=== PATIENT | female | born 1950 | race Caucasian/White ===

== ENCOUNTER 2017-01-03 12:37 | Outpatient (CLI) | payer MEDICARE, OTHER ==
[2014-05-25 16:31] VITALS: BP 114/71
--- NOTE | 2017-01-03 14:27 | Diagnostic Imaging Report ---
MIRTA ESCOBAR [facility] [address] [facility].[address] [address] Report Submission Date: Jan 03, 2017 1:24:00 PM CDT Patient Study Name: EVELIO MERCADO Date: Jan 03, 2017 12:51:35 PM CDT Modality Type: US Gender: F Description: DPLX SCN XTRCRAN ART CMP SHANTEL : 50 Institution: [facility] Physician: MIRTA SECOBAR Examination: Carotid artery ultrasound History: Retinal artery exclusion Comparison exams: None available Findings: Right carotid: Common carotid artery peak systolic velocity 97.6 cm/s; end diastolic velocity 31.5 cm/s. Internal carotid artery peak systolic velocity 72.2 cm/s; end diastolic velocity 27.1 cm/s. External carotid artery velocity to 84.7 cm/s. Vertebral artery velocity 43.6 cm/s Vertebral flow antegrade. Normal waveforms. Minimal internal carotid artery plaquing, not nonocclusive. Left carotid: Common carotid artery peak systolic velocity 90.4 cm/s; end diastolic velocity 31.1 cm/s. Internal carotid artery peak systolic velocity 71.2 cm/s; end diastolic velocity 28.5 cm/s. External carotid artery velocity to 74.7 cm/s. Vertebral artery velocity 37.0 cm/s Vertebral flow antegrade. Normal waveforms. No abnormal plaquing. Right ICA/CCA Ratio: 0.9 Left ICA/CCA Ratio 0.8 Impression: Carotids ratios not elevated. No restriction to hemodynamic flow. Minimal right internal carotid plaquing. Electronically signed on Jan 03, 2017 1:24:00 PM CDT by: Yusef JOHNSON
== END 2017-01-03 12:40 ==
LOC: RAD 12:37
PROVIDERS: ATTEND Family Medicine
DX: H34.231 Retinal artery branch occlusion, right eye (principal)
CPT/HCPCS: 93880

== ENCOUNTER 2017-02-07 12:40 | Outpatient (CLI) | payer MEDICARE, OTHER ==
[2014-05-25 16:31] VITALS: BP 114/71
== END 2017-02-07 12:42 ==
LOC: CARD 12:40
PROVIDERS: ATTEND Internal Medicine Cardiovascular Disease
DX: I74.10 Embolism and thrombosis of unspecified parts of aorta (principal)

== ENCOUNTER 2017-03-29 19:55 | Emergency (ER) | payer MEDICARE, OTHER ==
[2017-03-29] MEDS ORDERED: OXYMETAZOLINE HCL 0.05% NASAL SPRAY NS ONE (19:58)
[2017-03-29 20:24] LABS: BASOPHILS % 0.4 (0.0-1.5); EOSINOPHILS % 0.9 % (0.0-6.8); MEAN CORPUSCULAR HEMOGLOBIN 30.8 pg (28.0-34.0); MEAN CORPUSCULAR VOLUME 91.5 fl (80.0-100.0); MONOCYTES % 4.4 % (0.0-11.0); NEUTROPHILS # 3.3 # k/uL (1.4-7.7)
[2017-03-29] MEDS ORDERED: PHYTONADIONE 10 MG/1 ML ONE (20:40)
[2017-03-29] MEDS ORDERED: PHYTONADIONE 10 MG/1 ML SUBCUT ONE (20:42)
--- NOTE | 2017-03-29 20:46 | ED Physician Documentation ---
Epistaxis - HISTORIAN Historian: patient - HPI Stated Complaint: Nose bleed Chief Complaint: Nosebleed Onset: hours (2) Timing: still present Location: left Severity: mild Further Comments: yes (66 year old female patient presents with nose bleed from left nare. Patient reports bleeding for 2 hours. On coumadin for A Fib) - ROS MS/SKIN/LYMPH: excessive bruising (related to coumadin) EYES/ENT: none GI/: denies: black stool, problems urinating CVS/RESP: denies: chest pain, difficulty breathing NEURO/PSYCH: denies: dizziness - PAST HX Past History: none, hypertension Other History: A-Fib, diabetes Type 2, other (hypothyroidism) Allergies/Adverse Reactions: Allergies Allergy/AdvReac Type Severity Reaction Status Date / Time Penicillins Allergy Intermediate Rash Verified 03/29/17 20:08 cephalexin monohydrate AdvReac Intermediate Nausea/Vomi Verified 03/29/17 20:08 [From Keflex] ting Sulfa (Sulfonamide AdvReac Intermediate Nausea/Vomi Verified 03/29/17 20:08 Antibiotics) ting Home Medications: Ambulatory Orders Medication Instructions Recorded Amitriptyline HCl [Amitriptyline 25 mg PO D 01/15/14 HCl] Atorvastatin Calcium [Lipitor] 20 mg PO D 01/15/14 Levothyroxine Sodium [Synthroid] 25 mcg PO D 01/15/14 Warfarin Sodium [Coumadin] 5 mg PO SEE.INSTRUCTIONS 01/15/14 Insulin Aspart [Novolog] 30 unit SQ BID 06/02/14 Metformin HCl [Glucophage] 1,000 mg PO BID u2 06/02/14 Metoprolol Succinate 25 mg PO DAILY u2 06/02/14 - SOCIAL HX Smoking History: non-smoker - FAMILY HX Family History: No - VITAL SIGNS Vital Signs: Vital Signs Temp Pulse Resp BP Pulse Ox 72 18 173/82 98 03/29/17 19:55 03/29/17 19:55 03/29/17 19:55 03/29/17 19:55 - REVIEWED ASSESSMENTS Nursing Assessment Reviewed: Yes Vitals Reviewed: Yes Progress - Progress Progress: Afrin placed in left nare. Pressure held x 15 minutes Bleeding stopped while in ER; will not place rhino rocket INR 5.7 2mg Vit K given Sub Q, no po available. Patient instructed to hold 2 doses of coumadin. INR is managed by coumadin clinic at [facility], patient instructed to call them for new dosage. Verbalized understanding. ED Results Lab/Radiology - Lab Results Lab Results: Lab Results 03/29/17 03/29/17 20:18 20:18 WBC 5.10 K/ul K/ul (4.00-12.00) RBC 3.71 M/ul L M/ul (3.90-5.20) Hgb 11.4 g/dL L g/dL (12.0-16.0) Hct 33.9 % L % (34.5-46.5) MCV 91.5 fl fl (80.0-100.0) MCH 30.8 pg pg (28.0-34.0) MCHC 33.7 g/dL g/dL (30.0-36.0) RDW 13.0 % % (11.3-14.3) Plt Count 132 K/mm3 K/mm3 (130-400) Neut % (Auto) 63.6 % % (39.0-79.0) Lymph % (Auto) 29.3 % % (16.0-50.0) [place] % (Auto) 4.4 % % (0.0-11.0) Eos % (Auto) 0.9 % % (0.0-6.8) Baso % (Auto) 0.4 (0.0-1.5) Neut # (Auto) 3.3 # k/uL # k/uL (1.4-7.7) Lymph # (Auto) 1.5 # k/uL # k/uL (0.6-4.0) [place] # (Auto) 0.2 # k/uL # k/uL (0.0-0.9) Eos # (Auto) 0.0 # k/uL # k/uL (0.0-0.6) Baso # (Auto) 0.0 # k/uL # k/uL (0.0-0.5) Reactive Lymphs % 1.3 % % (0.0-5.0) Reactive Lymphs # 0.1 # k/uL # k/uL (0.0-0.8) PT 61.1 Seconds H Seconds (9.4-11.6) INR 5.72 H* (0.9-1.2) - Orders Orders: ED Orders Category Date Time Status CBC/PLATELET/DIFF Stat Lab 03/29/17 20:18 Completed PT-INR Stat Lab 03/29/17 20:18 Completed Oxymetazoline HCl [Afrin 0.05%] Med 03/29/17 19:58 Discontinued 2 spray NS NOW ONE Phytonadione [Vitamin K] Med 03/29/17 20:40 Discontinued 10 mg .ROUTE .STK-MED ONE Phytonadione [Vitamin K] Med 03/29/17 20:42 Discontinued 2 mg SUBCUT NOW ONE Epistaxis Physical Exam - EXAM General Appearance: mild distress Nose: active bleeding (L), minimal Head/Neck: atraumatic, thyroid nml Eyes/Ears: eyes nml inspection, PERRL Mouth: lips nml, gums nml, pharynx nml Neuro/Psych: oriented x3, neuro intact, mood/affect nml, CN's nml as tested Respiratory: no resp distress CVS: irregularly irregular rhy Abdomen: non-tender Skin: nml color, no skin rash Discharge Clincal Impression: Hypoprothrombinemia, Epistaxis Referrals: Leonela Villegas MD [Primary Care Provider] - 2 Days Additional Instructions: INR 5.7 We gave you 2mg of Vitamin K sub Q Hold you Coumadin and Monday Call the Coumadin Clinic with your INR results. Follow their instructions on decreasing your dosage. Condition: Stable Disposition: 01 HOME, SELF-CARE Decision to Admit: NO Decision Time: 20:46
[2017-03-29 21:19] VITALS: BP 173/80
== END 2017-03-29 21:00 | disposition home or self-care (01) ==
LOC: ED 19:55
DX: D68.2 Hereditary deficiency of other clotting factors (principal); R04.0 Epistaxis
CPT/HCPCS: 85025; 85610; J3430; 96372; 99283

== ENCOUNTER 2017-04-22 18:22 | Emergency (ER) | payer MEDICARE, OTHER ==
--- NOTE | 2017-04-22 18:27 | ED Physician Documentation ---
Chest Pain - HISTORIAN Historian: patient - HPI Stated Complaint: chest pain Chief Complaint: Chest Pain Onset: hours (1) Timing: sudden onset Duration: constant, other (actually improving ) Last known Well Date: 04/22/17 Last Known Well Time: 17:00 Last known Well Code/Unknown Code: Unknown Context: activity Severity: moderate Quality: pressure, tightness, sharp Chest Pain Radiation: arms (left arm ) Chest Pain Signs/Symptoms: dizziness. denies: nausea, vomiting, diaphoresis, dyspnea, tachypnea Worsened By: nothing Relieved By: nothing Further Comments: yes (extensive cardiac history) - ROS CONST: none MS/LYMPH: none GI/: none SKIN/ENDO: none NEURO/PSYCH: none - PAST HX CA risk factors: other (genetic heart issue, heart surgery , HTN, (ot controlled DM ) DVT/PE Risk Factors: none TAD/AAA risk factors: none Neuro deficit: none GI disease: none Lung disease: none Surgeries/Procedures: other (Heart ) Immunizations: referred to PCP - SOCIAL HX Smoking History: cigarettes Drug Use: none - FAMILY HX Family HX: none - VITAL SIGNS Vital Signs: Vital Signs Temp Pulse Resp BP Pulse Ox 173/80 03/29/17 21:00 - REVIEWED ASSESSMENTS Nursing Assessment Reviewed: Yes Vitals Reviewed: Yes <Alena Motta - Last Filed: 04/22/17 19:04> - PAST HX CA risk factors: cardiac disease (Tetrology of Fallot), other (genetic heart issue, heart surgery , HTN, (ot controlled DM , tetrology of Fallot) - VITAL SIGNS Vital Signs: Vital Signs Temp Pulse Resp BP Pulse Ox 108 H 173/80 98 04/22/17 18:57 03/29/17 21:00 04/22/17 18:57 <Raj Nguyen - Last Filed: 04/22/17 20:51> - PAST HX Allergies/Adverse Reactions: Allergies Allergy/AdvReac Type Severity Reaction Status Date / Time Penicillins Allergy Intermediate Rash Verified 04/22/17 19:21 cephalexin monohydrate AdvReac Intermediate Nausea/Vomi Verified 04/22/17 19:21 [From Keflex] ting Sulfa (Sulfonamide AdvReac Intermediate Nausea/Vomi Verified 04/22/17 19:21 Antibiotics) ting Home Medications: Ambulatory Orders Medication Instructions Recorded Amitriptyline HCl [Amitriptyline 25 mg PO D 01/15/14 HCl] Atorvastatin Calcium [Lipitor] 20 mg PO D 01/15/14 Levothyroxine Sodium [Synthroid] 25 mcg PO D 01/15/14 Warfarin Sodium [Coumadin] 5 mg PO SEE.INSTRUCTIONS 01/15/14 Insulin Aspart [Novolog] 30 unit SQ BID 06/02/14 Metformin HCl [Glucophage] 1,000 mg PO BID u2 06/02/14 Metoprolol Succinate 25 mg PO DAILY u2 06/02/14 Cholecalciferol [Vitamin D-3] 2,000 mg PO D 04/22/17 Mecobalamin [B-12] 1,000 mcg PO D 04/22/17 Progress - Progress Progress: 184: states pain is 4/10 at this time DG 190: States pain is resolved at this time DG <Alena Motta - Last Filed: 04/22/17 19:04> - Progress Progress: Transfer to [facility]. Dr. Sutherland ASA 325 mg po Metoprolol 5 mg IV given per Dr. Sutherland prior to transfer. - EKG/XRAY/CT EKG: rhythm (sinus tachycardia; RBBB; non-specific T-wave abnormality; EKG little changed vs EKG of 05-25-14.) XRAY: chest (Upper normal heart size and borderline pulmonary vascular congestion. Sternotomy noted) <Raj Nguyen - Last Filed: 04/22/17 20:51> ED Results Lab/Radiology - Lab Results Lab Results: Lab Results 04/22/17 18:35 Sodium 139 mmol/L mmol/L (136-145) Potassium 3.9 mmol/L mmol/L (3.5-5.1) Chloride 106 mmol/L mmol/L (98-107) Carbon Dioxide 23 mmol/L mmol/L (22-30) BUN 20 mg/dL H mg/dL (7-17) Creatinine 1.00 mg/dL mg/dL (0.52-1.04) Est GFR ( Amer) > 60 (60 - ) Est GFR (Non-Af Amer) > 60 (60 - ) Glucose 274 mg/dL H mg/dL (74-106) Calcium 8.9 mg/dL mg/dL (8.4-10.2) Total Bilirubin 0.9 mg/dL mg/dL (0.2-1.3) AST 34 U/L U/L (15-46) ALT 57 U/L U/L (13-69) Alkaline Phosphatase 140 U/L H U/L (38-126) Creatine Kinase 139 U/L H U/L (30-135) Total Protein 6.5 g/dL g/dL (6.3-8.2) Albumin 3.5 g/dL g/dL (3.5-5.0) - Orders Orders: ED Orders Category Date Time Status Continuous EKG monitoring Q30M Care 04/22/17 18:27 Active Continuous Pulse Oximetry Q30M Care 04/22/17 18:27 Active CHEST 1 VIEW [RAD] Stat Exams 04/22/17 18:27 Completed CBC/PLATELET/DIFF Routine Lab 04/22/17 18:35 Received CMP Routine Lab 04/22/17 18:35 Completed CREATINE KINASE Routine Lab 04/22/17 18:35 Completed TROPONIN I (cTnI) Stat Lab 04/22/17 18:35 Received Oxygen Daily Oxygen 04/22/17 18:30 Ordered EKG WITH COMPARISON Stat Ther 04/22/17 18:27 Ordered <Raj Nguyen - Last Filed: 04/22/17 20:51> Chest Pain Physical Exam - EXAM General Appearance: no acute distress, alert Respiratory: no resp. distress, chest non-tender, nml breath sounds, resp.distress CVS: reg. rate & rhythm, murmur Abdomen: soft, no organomegaly, normal bowel sounds Skin: warm/dry, normal color Extremities: non-tender, normal range of motion Neuro: oriented X3, CN's nml as tested <Alena Motta - Last Filed: 04/22/17 19:04> Discharge <Alena Motta - Last Filed: 04/22/17 19:04> Decision to Admit: NO Decision Time: 20:50 <Raj Nguyen - Last Filed: 04/22/17 20:51> Clincal Impression: Elevated troponin I level Chest pain Qualifiers: Chest pain type: unspecified Qualified Code(s): R07.9 - Chest pain, unspecified Referrals: Leonela Villegas MD [Primary Care Provider] - Condition: Fair Disposition: XFER [facility]
[2017-04-22 18:43] LABS: BASOPHILS % 0.3 (0.0-1.5); EOSINOPHILS % 1.9 % (0.0-6.8); MEAN CORPUSCULAR HEMOGLOBIN 30.9 pg (28.0-34.0); MEAN CORPUSCULAR VOLUME 90.7 fl (80.0-100.0); MONOCYTES % 5.1 % (0.0-11.0); NEUTROPHILS # 4.9 # k/uL (1.4-7.7)
[2017-04-22 19:25] LABS: eGFR (African) > 60; eGFR (Non-African) > 60
--- NOTE | 2017-04-22 19:32 | Diagnostic Imaging Report ---
[facility] [address] [facility].[address] [address] Report Submission Date: Apr 22, 2017 7:10:13 PM NOTCH MACHINE OPERATOR Patient Study Name: EVELIO MERCADO Date: Apr 22, 2017 6:53:43 PM NOTCH MACHINE OPERATOR Modality Type: CR Gender: F Description: CHEST : 50 Institution: [facility] Physician: SARIKA MESSER Portable chest History: Chest pain Findings: Sternotomy wires are present. Upper normal heart size and mild pulmonary vascular congestion are observed. There is no infiltrate or pleural effusion. Impression: Upper normal heart size and borderline pulmonary vascular congestion. Sternotomy noted. Electronically signed on Apr 22, 2017 7:10:13 PM NOTCH MACHINE OPERATOR by: Omid JOHNSON
[2017-04-22] MEDS: ASPIRIN 325 MG TABLET PO ONE (21:00)
[2017-04-22] MEDS: METOPROLOL TARTRATE 5 MG/5 ML VIAL IVP ONE (21:00)
[2017-04-22 21:38] VITALS: BP 163/92
== END 2017-04-22 21:30 | disposition short-term general hospital (02) ==
LOC: ED 18:22
DX: R79.89 Other specified abnormal findings of blood chemistry (principal); R07.9 Chest pain, unspecified
CPT/HCPCS: 71010; 80053; 82550; 84484; 85025; 85379; A9270; J3490; 99284; S1016

== ENCOUNTER 2018-03-27 14:37 | Outpatient (CLI) | payer MEDICARE, OTHER | END 2018-03-27 14:40 | LOC: NEPHRO 14:37 | PROVIDERS: ATTEND Internal Medicine Nephrology | DX: E88.09 Other disorders of plasma-protein metabolism, not elsewhere classified (principal); E11.9 Type 2 diabetes mellitus without complications; I10 Essential (primary) hypertension; N04.9 Nephrotic syndrome with unspecified morphologic changes | CPT/HCPCS: G0463 ==